=== PATIENT | male | born 1955 | race Caucasian/White ===

== ENCOUNTER → 2017-12-09 | Outpatient (CLI) | payer MEDICARE, MEDICAID ==
[~2017-12-09] MED LIST: ASPIRIN ADULT L81 M2 PO; ATORVASTATIN CA20 M1 PO; CILOSTAZOL100 MG PO; NKHM; PERCOCET 325 MG1 TA2 PO
== END | disposition home or self-care (01) ==
LOC: US 10:08
DX: I73.9 Peripheral vascular disease, unspecified (principal); I10 Essential (primary) hypertension; Z72.0 Tobacco use